=== PATIENT | male | born 1995 | race Caucasian/White ===

== ENCOUNTER 2016-08-13 18:14 | Emergency (ER) | payer OTHER ==
[~2016-08-13] VITALS: Ht 182.9 cm; Wt 57.7 kg
[2016-08-13 18:37] VITALS: TEMP 37; Ht 182.9 cm; Wt 57.7 kg
[2016-08-13] MEDS ORDERED: SODIUM CHLORIDE 0.9% 1000ML 1,000 ML IV STA (19:26)
[2016-08-13] MEDS ORDERED: SODIUM CHLORIDE 0.9% 1000ML 1,000 ML IV ONE (19:26)
--- NOTE | 2016-08-13 19:47 | DIAGNOSTIC IMAGING REPORT ---
CHEST ONE VIEW PORTABLE CLINICAL HISTORY: CHEST PAIN dyspnea COMPARISON STUDY: No previous studies for comparison. FINDINGS: The bones soft tissues and hemidiaphragms are normal. The cardiomediastinal silhouette is normal. The lungs are clear. The pulmonary vasculature is normal. IMPRESSION: Negative chest. Electronically signed by: Renaldo Jurado M.D. 08/13/2016 7:45 PM Dictated Date/Time: 08/13/2016 7:45 PM
[2016-08-13 19:48] LABS: BASO % 0.4 %; BASO ABS # 0.03 K/uL (0-0.2); COMPLETE YES; EOS % 0.5 %; HEMATOCRIT 45.3 % (42-52); IG% 0.1 %; LYMPH ABS # 1.94 K/uL (1.2-3.4); MEAN CELL VOLUME 89.3 fL (80-100); MEAN CORPUSCULAR HEMOGLOBIN 32.7 pg (25-34); MEAN CORPUSCULAR HGB CONC 36.6 g/dl (32-36); MEAN PLATELET VOLUME 9.8 fL (7.4-10.4); MONO % 7.1 %; NEUT % 66.9 %; PLATELET COUNT 294 K/uL (130-400); RED BLOOD COUNT 5.07 M/uL (4.7-6.1); WHITE BLOOD COUNT 7.76 K/uL (4.8-10.8)
[2016-08-13] MEDS ORDERED: PRLSR20 PO (19:50)
[2016-08-13] MEDS ORDERED: AMPH30CA3 PO (19:50)
[2016-08-13 20:06] LABS: ALT/SGPT 23 U/L (12-78); AST/SGOT 13 U/L (15-37); BLOOD UREA NITROGEN 12 mg/dl (7-18); BUN/CREATININE RATIO 12.4 (10-20); CALCIUM 8.8 mg/dl (8.5-10.1); CARBON DIOXIDE 32 mmol/L (21-32); CHLORIDE 106 mmol/L (98-107); CREATININE 0.97 mg/dl (0.60-1.40); GLUCOSE 106 mg/dl (70-99); POTASSIUM 3.5 mmol/L (3.5-5.1); SODIUM 142 mmol/L (136-145)
[2016-08-13 20:17] LABS: ALKALINE PHOSPHATASE 70 U/L (45-117); THYROID STIMULATING HORMONE 0.646 uIu/ml (0.300-4.500)
[2016-08-13 20:46] LABS: LYME DISEASE AB IGG NEG (NEG); LYME DISEASE AB IGM NEG (NEG)
[2016-08-13 22:15] VITALS: BP 127/67; PULSE 84; O2SAT 100
--- NOTE | 2016-08-14 01:56 | EMERGENCY ROOM VISIT NOTE ---
History Report prepared by Catracho: Purvi Adams Under the Supervision of: Dr. Kaveh Renner M.D. First contact with patient: 19:16 Chief Complaint: PAIN (GENERALIZED) Stated Complaint: CHEST PAINS,NERVE/JOIN/MUSCLE/ABD PAIN,DIZZY History of Present Illness The patient is a 20 year old male who presents to the Emergency Room with complaints of constant generalized pain beginning a few weeks prior to arrival. He notes the pain is in his nerves and joints. He also notes he has been experiencing dizziness, sensitivity to light, abdominal pain, cough, chest pain and shortness of breath. He notes the chest pain has been intermittent for the past month. The patient admits to feeling anxious and fatigue and having depressive thoughts recently. He denies suicidal ideation. The patient takes Adderall daily for his ADD. He is currently taking acid reflux medication. No trauma or injury. Source of History: patient, parent Onset: few weeks [employer] EM[employer]OY[employer] Position: other (global) Quality: other (generalized pain) Timing: constant Associated Symptoms: + SOB, + abdominal pain, + chest pain, + cough Review of Systems See HPI for pertinent positives & negatives. A total of 10 systems reviewed and were otherwise negative. Past Medical & Surgical Medical Problems: (1) Enlargement Lymph Nodes (2) Lymphadenitis Nos Old medical records were reviewed. Nurse's notes were reviewed and I agree with. Family History Hypertension Social History Smoking Status: Current Every Day Smoker Alcohol Use: none Drug Use: none Marital Status: single Occupation Status: employed Current/Historical Medications Scheduled Omeprazole (Prilosec), 20 MG PO DAILY Scheduled PRN Amphetamine-Dextroamphetamine 30MG (Adderall Xr 30MG), 30 MG PO DAILY PRN for PRN Allergies Coded Allergies: No Known Allergies (Unverified , 08/13/16) Physical Exam Vital Signs Date Time Temp Pulse Resp B/P Pulse Ox O2 Delivery O2 Flow Rate FiO2 08/13/16 22:15 84 18 127/67 100 Room Air 08/13/16 20:15 93 16 114/77 100 Room Air 08/13/16 18:37 37.0 125 20 137/80 97 Room Air Physical Exam General: Non-ill appearing young male. Well developed well nourished slender young male who appears in no acute distress, breathing comfortably on room air. Normal speech nonpressured HEENT: Normal cephalic atraumatic. Pupils are equal round and reactive to light. They're anicteric. Extraocular movements are intact. Oropharynx is pink with moist mucous membranes. No swelling of the mouth lips or tongue. Neck: Supple with a midline trachea. No meningeal signs or stiffness, no JVD or bruits. No Stridor. Chest: Clear to auscultation bilaterally. No wheezes or rhonchi. No increased work of breathing. Heart: regular rate and rhythm. Abdomen: Soft nontender, nondistended without rebound guarding or rigidity. Extremities: No cyanosis clubbing or edema. No calf tenderness or assymetry. No redness or warmth or tenderness of any joints focally Spine/Back. Non tender to palpation. No CVA tenderness Skin: Good turgor without rashes. Neurologic exam: Cranial nerves two through 12 are intact. Motor and sensation are intact and symmetrical throughout. No tremor. Medical Decision & Procedures ER Provider Diagnostic Interpretation: X-ray results as stated below per interpretation by me and the radiologist: CHEST ONE VIEW PORTABLE CLINICAL HISTORY: CHEST PAIN dyspnea COMPARISON STUDY: No previous studies for comparison. FINDINGS: The bones soft tissues and hemidiaphragms are normal. The cardiomediastinal silhouette is normal. The lungs are clear. The pulmonary vasculature is normal. IMPRESSION: Negative chest. Electronically signed by: Renaldo Jurado M.D. 08/13/2016 7:45 PM Dictated Date/Time: 08/13/2016 7:45 PM Laboratory Results 08/13/16 19:36 Red Blood Count 5.07, Mean Corpuscular Volume 89.3, Mean Corpuscular Hemoglobin 32.7, Mean Corpuscular Hemoglobin Concent 36.6, Mean Platelet Volume 9.8, Neutrophils (%) (Auto) 66.9, Lymphocytes (%) (Auto) 25.0, Monocytes (%) (Auto) 7.1, Eosinophils (%) (Auto) 0.5, Basophils (%) (Auto) 0.4, Neutrophils # (Auto) 5.19, Lymphocytes # (Auto) 1.94, Monocytes # (Auto) 0.55, Eosinophils # (Auto) 0.04, Basophils # (Auto) 0.03 08/13/16 19:36 Test 08/13/16 19:36 08/13/16 19:42 White Blood Count 7.76 K/uL (4.8-10.8) Red Blood Count 5.07 M/uL (4.7-6.1) Hemoglobin 16.6 g/dL (14.0-18.0) Hematocrit 45.3 % (42-52) Mean Corpuscular Volume 89.3 fL (80-100) Mean Corpuscular Hemoglobin 32.7 pg (25-34) Mean Corpuscular Hemoglobin Concent 36.6 g/dl (32-36) Platelet Count 294 K/uL (130-400) Mean Platelet Volume 9.8 fL (7.4-10.4) Neutrophils (%) (Auto) 66.9 % Lymphocytes (%) (Auto) 25.0 % Monocytes (%) (Auto) 7.1 % Eosinophils (%) (Auto) 0.5 % Basophils (%) (Auto) 0.4 % Neutrophils # (Auto) 5.19 K/uL (1.4-6.5) Lymphocytes # (Auto) 1.94 K/uL (1.2-3.4) Monocytes # (Auto) 0.55 K/uL (0.11-0.59) Eosinophils # (Auto) 0.04 K/uL (0-0.5) Basophils # (Auto) 0.03 K/uL (0-0.2) RDW Standard Deviation 39.6 fL (36.4-46.3) RDW Coefficient of Variation 12.2 % (11.5-14.5) Immature Granulocyte % (Auto) 0.1 % Immature Granulocyte # (Auto) 0.01 K/uL (0.00-0.02) Erythrocyte Sedimentation Rate 2 mm/hr (0-14) Anion Gap 4.0 mmol/L (3-11) Est Creatinine Clear Calc Drug Dose 100.0 ml/min Estimated GFR () 130.6 Estimated GFR (Non- 112.7 BUN/Creatinine Ratio 12.4 (10-20) Calcium Level 8.8 mg/dl (8.5-10.1) Total Bilirubin 0.3 mg/dl (0.2-1) Direct Bilirubin < 0.1 mg/dl (0-0.2) Aspartate Amino Transf (AST/SGOT) 13 U/L (15-37) Alanine Aminotransferase (ALT/SGPT) 23 U/L (12-78) Alkaline Phosphatase 70 U/L (45-117) Total Creatine Kinase 86 U/L (39-308) Creatine Kinase MB < 0.5 ng/ml (0.5-3.6) Creatine Kinase MB Ratio (0-3.0) Total Protein 8.5 gm/dl (6.4-8.2) Albumin 4.9 gm/dl (3.4-5.0) Lipase 194 U/L (73-393) Thyroid Stimulating Hormone (TSH) 0.646 uIu/ml (0.300-4.500) Lyme Disease IgG Antibody NEG (NEG) Lyme Disease IgM Antibody NEG (NEG) Bedside Troponin I 0.000 ng/ml (0-0.045) Laboratory studies as stated above per my review. Medications Administered Medications (Trade) Dose Ordered Sig/Slade Route Start Time Stop Time Status Last Admin Dose Admin Sodium Chloride 1,000 ml @ 999 mls/hr Q1H1M STAT IV 08/13/16 19:26 08/13/16 20:26 DC 08/13/16 19:36 999 MLS/HR Sodium Chloride (Nss 1000ml) 1,000 ml @ 150 mls/hr Q6H40M ONCE IV 08/13/16 19:26 08/13/16 22:39 DC 08/13/16 19:26 150 MLS/HR ECG Indication: other (generalized pain) Rate (beats per minute): 93 Rhythm: normal sinus Findings: no acute ischemic change, no ectopy ED Course 1917: Past medical records reviewed. The patient was evaluated in room C10, and a complete history and physical examination were performed. 1925: Sodium Chloride 1,000 ml @ 150 mls/hr IV, Sodium Chloride 1,000 ml @ 999 mls/hr IV. 2211: Upon reevaluation, the patient is hemodynamically stable. I discussed the results and treatment plan with the patient. He verbalized agreement of the treatment plan. The patient was discharged home. Medical Decision Differentials include, but are not limited to; cardiac disease, thyroid disease , electrolyte or metabolic abnormalities, toxicological process, anxiety. This patient comes in as described above. He has of a constellation of multiple symptoms. He looks well on exam and has stable vital signs. Based on his symptoms, an extensive workup was done which included multiple blood testing ,chest x-ray, and EKG. His EKG does not suggest acute cardiac event or arrhythmia. His cardiac enzymes are normal. No acute electrolyte or metabolic abnormalities. Chest x-ray does not suggest congestive heart failure or pneumonia or pneumothorax. He has no white count or fever or elevation of sedimentation rate or anything to suggest infection. With a normal sedimentation rate, a rheumatologic process is unlikely and he has normal- appearing joints. His Lyme titers were negative. He has nothing to suggest acute thyroid disease as a has normal TSH. Some of this may be anxiety related , I do think he needs further workup through his regular doctor. This point his workup is unremarkable but this is not being of his workup likely. I encouraged him use ibuprofen if needed for pain and return if: increasing pain, worsening of symptoms, fever or chills, any new problems concerns. The patient and his mother were happy the plan and he was discharged to home. Impression Primary Impression: Myalgia Additional Impression: Chest pain, precordial Scribe Attestation The scribe's documentation has been prepared under my direction and personally reviewed by me in its entirety. I confirm that the note above accurately reflects all work, treatment, procedures, and medical decision making performed by me. Departure Information Dispostion Home / Self-Care Referrals Zach Sparks D.O. (PCP) Forms HOME CARE DOCUMENTATION FORM, IMPORTANT VISIT INFORMATION, WORK / SCHOOL INSTRUCTIONS Patient Instructions [facility] Additional Instructions Rest. Return if: Worsening of symptoms, increasing pain or problems, redness or warmth , any new problems or concerns. May use ibuprofen 400 mg every 6 hours, take with food Follow-up with your doctor on Monday for recheck Problem Qualifiers
== END 2016-08-13 22:36 | disposition home or self-care (01) ==
LOC: C.EDB 18:15 → C.EDC 22:36
DX: M79.1 Myalgia (principal); R07.2 Precordial pain; F90.9 Attention-deficit hyperactivity disorder, unspecified type; Z82.49 Family history of ischemic heart disease and other diseases of the circulatory system; F17.200 Nicotine dependence, unspecified, uncomplicated